=== PATIENT | male | born 1945 | race African-American/Black ===

== ENCOUNTER 2017-04-02 17:58 | Inpatient (IN) | payer MEDICARE, OTHER ==
[~2017-04-02] VITALS: Ht 170.2 cm; Wt 83.9 kg
[~2017-04-02 17:58] MED LIST: ATENOLOL PO; OMEPRAZOLE; SIMVASTATIN; VALIUM
[2017-04-02] MEDS ORDERED: SODIUM CHLORIDE 0.9% 1,000 ML IV ONE (18:49)
[2017-04-02] MEDS ORDERED: PANTOPRAZOLE SODIUM 40 MG/VIAL IV STA (18:49)
[2017-04-02] MEDS ORDERED: DIPHENHYDRAMINE 25MG CAPSULE PO ONE (19:00)
[2017-04-02 19:16] LABS: BASOPHILS % 1.3 % (0.0-2.0); EOSINOPHILS % 3.1 % (0.0-5.0); HEMATOCRIT. 39.7 % (42.0-52.0); HEMOGLOBIN. 13.6 g/dL (14.0-18.0); LYMPHOCYTES % 36.2 % (20.0-50.0); MEAN CORPUSCULAR VOLUME 84.9 fL (80.0-94.0); MEAN PLATELET VOLUME 7.7 fl (7.4-10.4); MONOCYTES % 9.4 % (2.0-8.0); PLATELET 193 x1000/uL (130-400); RED BLOOD CELL COUNT 4.68 mill/uL (4.7-6.1); RED CELL DISTRIBUTION WIDTH 18.7 % (11.6-14.6)
[2017-04-02 19:24] LABS: INR 1.1; PROTHROMBIN TIME 11.1 sec (9.4-11.6)
[2017-04-02 19:33] LABS: CARBON DIOXIDE 26 mEq/L (21-32); CHLORIDE 104 mEq/L (98-107); TROPONIN I < 0.02 ng/mL (0.00-0.04)
[2017-04-02 20:32] LABS: CLARITY URINE CLEAR (CLEAR); COLOR URINE YELLOW (YELLOW); GLUCOSE URINE NEGATIVE (NEGATIVE); KETONES URINE NEGATIVE (NEGATIVE); LEUKOCYTE ESTERASE URINE NEGATIVE (NEGATIVE); NITRITE URINE NEGATIVE (NEGATIVE); OCCULT BLOOD URINE NEGATIVE (NEGATIVE); PH URINE 5.5 (4.5-8.0); PROTEIN URINE NEGATIVE (NEGATIVE); SPECIFIC GRAVITY URINE 1.007 (1.005-1.030); UROBILINOGEN URINE 0.2 E.U./dL (0.2-1.0)
[2017-04-02] MEDS ORDERED: DOCUSATE SODIUM 100MG CAPSULE PO PRN (21:30)
[2017-04-02] MEDS ORDERED: ACETAMINOPHEN 325MG TABLET PO PRN (21:30)
[2017-04-03] MEDS: SODIUM CHLORIDE 0.9% INJ 3ML FLUSH IVF SCH ×3 (06:00→20:50)
[2017-04-03 07:47] LABS: BASOPHILS % 0.8 % (0.0-2.0); EOSINOPHILS % 2.5 % (0.0-5.0); HEMATOCRIT. 41.4 % (42.0-52.0); LYMPHOCYTES % 29.1 % (20.0-50.0); MEAN CORPUSCULAR HEMOGLOBIN 28.9 pg (28.0-32.0); MEAN CORPUSCULAR VOLUME 85.2 fL (80.0-94.0); MEAN PLATELET VOLUME 7.8 fl (7.4-10.4); MONOCYTES % 9.9 % (2.0-8.0); NEUTROPHILS % 57.7 % (40.0-76.0); PLATELET 190 x1000/uL (130-400); RED BLOOD CELL COUNT 4.86 mill/uL (4.7-6.1)
[2017-04-03] MEDS: PANTOPRAZOLE 40MG DR TABLET PO SCH (07:50)
[2017-04-03 08:00] VITALS: BP 167/96
[2017-04-03 08:04] LABS: CARBON DIOXIDE 28 mEq/L (21-32); CHLORIDE 106 mEq/L (98-107); HDL CHOLESTEROL 49 mg/dL (40-59); LDL CHOLESTEROL 106 mg/dL (5-100); TROPONIN I < 0.02 ng/mL (0.00-0.04)
[2017-04-03 09:33] VITALS: BP 167/96
[2017-04-03] MEDS ORDERED: ONDANSETRON HCL 4MG/2ML VIAL IV PRN (11:30)
[2017-04-03] MEDS ORDERED: ACETAMINOPHEN 325MG TABLET PO PRN (11:30)
[2017-04-03] MEDS ORDERED: IPRATROPIUM/ALBUTEROL 0.5-3(2.5)MG/3ML NEB INH PRN (11:30)
[2017-04-03] MEDS: METOPROLOL TARTRATE 25MG TABLET PO SCH ×2 (11:36→20:50)
[2017-04-03] MEDS: HYDROCODONE/ACETAMINOPHEN 5/325MG TABLET PO PRN ×2 (11:36→18:20)
[2017-04-03 12:00] VITALS: BP 157/90
[2017-04-03 15:49] LABS: CREATINE KINASE 103 IU/L (39-308); TROPONIN I < 0.02 ng/mL (0.00-0.04)
[2017-04-03 16:00] VITALS: BP 121/102
[2017-04-03 20:00] VITALS: BP 137/81
[2017-04-03] MEDS ORDERED: ATORVASTATIN CALCIUM 20MG TABLET PO SCH (21:00)
[2017-04-03 23:37] LABS: CREATINE KINASE 122 IU/L (39-308); TROPONIN I < 0.02 ng/mL (0.00-0.04)
[2017-04-04] VITALS: BP 154/85
[2017-04-04 04:00] VITALS: BP 154/83
[2017-04-04 05:42] LABS: BASOPHILS % 1.1 % (0.0-2.0); EOSINOPHILS % 4.6 % (0.0-5.0); HEMATOCRIT. 39.8 % (42.0-52.0); HEMOGLOBIN. 13.4 g/dL (14.0-18.0); LYMPHOCYTES % 34.7 % (20.0-50.0); MEAN CORPUSCULAR HEMOGLOBIN 28.9 pg (28.0-32.0); MEAN PLATELET VOLUME 8.1 fl (7.4-10.4); MONOCYTES % 11.6 % (2.0-8.0); PLATELET 184 x1000/uL (130-400); RED BLOOD CELL COUNT 4.63 mill/uL (4.7-6.1); RED CELL DISTRIBUTION WIDTH 19.1 % (11.6-14.6)
[2017-04-04] MEDS: SODIUM CHLORIDE 0.9% INJ 3ML FLUSH IVF SCH (05:54)
[2017-04-04 06:39] LABS: CARBON DIOXIDE 25 mEq/L (21-32); CHLORIDE 104 mEq/L (98-107); HDL CHOLESTEROL 42 mg/dL (40-59); LDL CHOLESTEROL 98 mg/dL (5-100)
[2017-04-04 08:00] VITALS: BP 136/83
[2017-04-04] MEDS: PANTOPRAZOLE 40MG DR TABLET PO SCH (09:07)
[2017-04-04] MEDS: HYDROCODONE/ACETAMINOPHEN 5/325MG TABLET PO PRN (09:07)
[2017-04-04] MEDS: METOPROLOL TARTRATE 25MG TABLET PO SCH (09:07)
[2017-04-04 11:18] VITALS: BP 136/83
== END 2017-04-04 11:59 | disposition home or self-care (01) | DRG 379 ==
LOC: EDBEDREQ 21:36 → ER 22:02 → 7WST 22:03 → ENRESERV 04-03 07:08
PROVIDERS: ADMIT Ophthalmology; ATTEND Internal Medicine
DX: K92.2 Gastrointestinal hemorrhage, unspecified (principal); I10 Essential (primary) hypertension; E78.5 Hyperlipidemia, unspecified; E78.00 Pure hypercholesterolemia, unspecified; F17.200 Nicotine dependence, unspecified, uncomplicated; W57.XXXA Bitten or stung by nonvenomous insect and other nonvenomous arthropods, initial encounter
CPT/HCPCS: 36415; 71010; 74176; 80048; 80053; 80061; 81003; 82270; 82550; 84484; 85025; 85610; 85730; 86850; 86900; 93005; 96361; 96374; 99285; C9113; J7030; J7040; Q0163

== ENCOUNTER 2018-04-08 22:06 | Inpatient (IN) | payer OTHER ==
[~2018-04-08] VITALS: Ht 165.1 cm; Wt 89.8 kg
[~2018-04-08 22:06] MED LIST changes: -OMEPRAZOLE; +OMEPRAZOLE PO
[2018-04-08] MEDS ORDERED: PREDNISONE 20MG TABLET PO ONE (23:30)
[2018-04-08] MEDS ORDERED: IPRATROPIUM/ALBUTEROL 0.5-3(2.5)MG/3ML NEB HHN ONE (23:30)
[2018-04-09 00:12] LABS: BASOPHILS % 1.3 % (0.0-2.0); EOSINOPHILS % 3.6 % (0.0-5.0); HEMATOCRIT. 34.9 % (42.0-52.0); HEMOGLOBIN. 11.6 g/dL (14.0-18.0); LYMPHOCYTES % 38.6 % (20.0-50.0); MEAN CORPUSCULAR HEMOGLOBIN 26.5 pg (28.0-32.0); MEAN CORPUSCULAR VOLUME 80.1 fL (80.0-94.0); MEAN PLATELET VOLUME 7.9 fl (7.4-10.4); MONOCYTES % 9.3 % (2.0-8.0); NEUTROPHILS % 47.2 % (40.0-76.0); PLATELET 245 x1000/uL (130-400); RED BLOOD CELL COUNT 4.36 mill/uL (4.7-6.1); RED CELL DISTRIBUTION WIDTH 21.7 % (11.6-14.6)
[2018-04-09 00:17] LABS: CHLORIDE 107 mEq/L (98-107); PARTIAL THROMBOPLASTIN TIME 27.5 sec (23.4-31.0); PROTHROMBIN TIME 10.4 sec (9.1-11.1)
[2018-04-09] MEDS ORDERED: METHYLPREDNISOLONE SOD SUCC 125 MG/2 ML VIAL IV STA (01:24)
[2018-04-09] MEDS ORDERED: LEVOFLOXACIN 500MG PREMIX 100 ML IV ONE (01:30)
[2018-04-09] MEDS ORDERED: MAGNESIUM 2 G PREMIX 50 ML IV ONE (01:30)
[2018-04-09] MEDS ORDERED: MORPHINE SULFATE 4 MG/ML CPJ (NOT FOR IM USE) IV ONE (02:15)
[2018-04-09] MEDS ORDERED: HYDR-4009 PO (09:45)
[2018-04-09] MEDS ORDERED: BENA20TA10 PO (09:45)
[2018-04-09 09:54] VITALS: BP 166/88
[2018-04-09 10:00] VITALS: BP 166/88
[2018-04-09] MEDS ORDERED: ACETAMINOPHEN 325MG TABLET PO PRN (10:30)
[2018-04-09] MEDS ORDERED: CLONIDINE 0.1MG TABLET PO PRN (10:30)
[2018-04-09] MEDS ORDERED: ONDANSETRON HCL 4MG/2ML INJ IV PRN (10:30)
[2018-04-09] MEDS ORDERED: IPRATROPIUM/ALBUTEROL 0.5-3(2.5)MG/3ML NEB INH PRN (10:30)
[2018-04-09] MEDS: ENOXAPARIN 40MG/0.4ML SYR SUBCUT SCH (11:00)
[2018-04-09] MEDS: HYDROCODONE/ACETAMINOPHEN 5/325MG TABLET PO PRN ×2 (11:38→18:13)
[2018-04-09 11:55] VITALS: BP 130/63
[2018-04-09] MEDS ORDERED: SIMVASTATIN 20 MG SCH (12:30)
[2018-04-09] MEDS: BENAZEPRIL 10MG TABLET PO SCH (13:17)
[2018-04-09] MEDS: ATENOLOL 25MG TABLET PO SCH (13:18)
[2018-04-09] MEDS: METHYLPREDNISOLONE SOD SUCC 40 MG/ML VIAL IV SCH ×2 (13:18→21:01)
[2018-04-09] MEDS: LEVOFLOXACIN 500MG PREMIX 100 ML IV SCH (13:18)
[2018-04-09] MEDS: OMEPRAZOLE 20MG CAPSULE EXTENDED RELEASE PO SCH (14:37)
[2018-04-09 15:53] VITALS: BP 134/74
[2018-04-09 16:53] LABS: CREATINE KINASE 133 IU/L (39-308)
[2018-04-09 20:00] VITALS: BP 137/83
[2018-04-09] MEDS ORDERED: ATORVASTATIN CALCIUM 10MG TABLET PO SCH (21:00)
[2018-04-10] VITALS: BP 137/70
[2018-04-10 00:23] LABS: CREATINE KINASE 166 IU/L (39-308)
[2018-04-10 04:00] VITALS: BP 127/71
[2018-04-10] MEDS: HYDROCODONE/ACETAMINOPHEN 5/325MG TABLET PO PRN ×2 (06:13→14:20)
[2018-04-10] MEDS: OMEPRAZOLE 20MG CAPSULE EXTENDED RELEASE PO SCH (06:20)
[2018-04-10] MEDS ORDERED: LACTULOSE 20G/30ML UDC PO SCH (07:15)
[2018-04-10 08:00] VITALS: BP 128/62
[2018-04-10] MEDS: METHYLPREDNISOLONE SOD SUCC 40 MG/ML VIAL IV SCH (09:00)
[2018-04-10] MEDS: ATENOLOL 25MG TABLET PO SCH (09:00)
[2018-04-10] MEDS: BENAZEPRIL 10MG TABLET PO SCH (09:43)
[2018-04-10] MEDS: ENOXAPARIN 40MG/0.4ML SYR SUBCUT SCH (11:00)
[2018-04-10 12:43] VITALS: BP 132/69
[2018-04-10] MEDS ORDERED: ATENOLOL 25MG TABLET PO SCH (13:00)
[2018-04-10 13:59] LABS: BG BASE EXCESS -1.5 mmol/L (-2.0-2.0); BG CARBOXYHEMOGLOBIN 0.6 % (0.5-1.5); BG DEOXYHEMOGLOBIN 5.6 % (0.0-5.0); BG HCO3 ACT 22.7 mmol/L (22.0-26.0); BG METHEMOGLOBIN 0.2 % (0.0-1.5); BG OXYGEN SATURATION 94.4 % (92.0-98.5); BG OXYHEMOGLOBIN 93.6 % (94.0-97.0); BG PCO2 36.7 mmHg (35.0-45.0); BG PO2 75.4 mmHg (75.0-100.0); BG SAMPLE SITE RIGHT RADIAL; BG TOTAL HEMOGLOBIN 12.6 g/dL (12.0-18.0); BG VENT MODE ROOM AIR
[2018-04-10] MEDS: LEVOFLOXACIN 500MG PREMIX 100 ML IV SCH (14:17)
[2018-04-10 16:00] VITALS: BP 129/69
[2018-04-10 19:34] VITALS: BP 142/82
[2018-04-11] MEDS ORDERED: FAMOTIDINE 20MG TABLET PO SCH (09:00)
== END 2018-04-10 20:20 | disposition home or self-care (01) | DRG 192 ==
LOC: ER 22:06 → 6WST 04-09 07:50 → ENRESERV 04-09 08:00
PROVIDERS: ADMIT Internal Medicine; ATTEND Internal Medicine
DX: J44.1 Chronic obstructive pulmonary disease with (acute) exacerbation (principal); E78.00 Pure hypercholesterolemia, unspecified; F17.210 Nicotine dependence, cigarettes, uncomplicated; I10 Essential (primary) hypertension; J06.9 Acute upper respiratory infection, unspecified; Z91.19 Patient's noncompliance with other medical treatment and regimen; R06.03 Acute respiratory distress
CPT/HCPCS: 36415; 36600; 70360; 71045; 71250; 74176; 80053; 82375; 82550; 82805; 83690; 83880; 84484; 85025; 85610; 85730; 87804; 93005; 96374; 99285; J1650; J1956; J2270; J2920; J2930; J3475; J7030; J7040; J7512; J7620

== ENCOUNTER 2019-11-04 17:22 | Emergency (ER) | payer MEDICARE, OTHER ==
[~2019-11-04] VITALS: Ht 170.2 cm; Wt 88.0 kg
[~2019-11-04 17:22] MED LIST changes: +BENA20TA10 PO; +HYDR-4009 PO; -VALIUM
[2019-11-04] MEDS ORDERED: ACETAMINOPHEN 500MG TABLET PO ONE (19:15)
[2019-11-04 20:49] LABS: BASOPHILS % 0.9 % (0.0-2.0); EOSINOPHILS % 4.5 % (0.0-5.0); HEMATOCRIT. 38.6 % (42.0-52.0); HEMOGLOBIN. 13.3 g/dL (14.0-18.0); LYMPHOCYTES % 29.9 % (20.0-50.0); MEAN CORPUSCULAR HEMOGLOBIN 30.7 pg (28.0-32.0); MEAN CORPUSCULAR VOLUME 89.4 fL (80.0-94.0); MEAN PLATELET VOLUME 7.8 fl (7.4-10.4); MONOCYTES % 9.4 % (2.0-8.0); NEUTROPHILS % 55.3 % (40.0-76.0); PLATELET 249 x1000/uL (130-400); RED BLOOD CELL COUNT 4.32 mill/uL (4.7-6.1); RED CELL DISTRIBUTION WIDTH 17.3 % (11.6-14.6)
[2019-11-04 20:51] LABS: CHLORIDE 107 mEq/L (98-107)
[2019-11-04 20:55] LABS: ETHANOL BLOOD < 10 mg/dL; PROTHROMBIN TIME 10.4 sec (9.6-11.0)
[2019-11-04 20:57] LABS: C REACTIVE PROTEIN QUANT 0.4 mg/L (0.0-3.0)
[2019-11-04 21:26] LABS: CREATINE KINASE 124 IU/L (39-308)
[2019-11-04 21:26] LABS: OPIATES URINE SCREEN PRESUMTIVE POSITIVE (NEGATIVE); PHENCYCLIDINE URINE SCREEN NEGATIVE (NEGATIVE)
[2019-11-04 21:27] LABS: *AMPHETAMINES SCREEN URINE NEGATIVE (NEGATIVE); *BARBITURATES SCREEN URINE NEGATIVE (NEGATIVE); *BENZODIAZEPINES SCREEN URINE NEGATIVE (NEGATIVE); *COCAINE SCREEN URINE NEGATIVE (NEGATIVE); CANNABINOID URINE SCREEN NEGATIVE (NEGATIVE); METHADONE URINE SCREEN NEGATIVE (NEGATIVE)
[2019-11-04 22:51] VITALS: BP 142/80
== END 2019-11-04 22:52 | disposition home or self-care (01) ==
LOC: ER 17:22
DX: G89.29 Other chronic pain (principal); M54.89 Other dorsalgia; I10 Essential (primary) hypertension; E78.00 Pure hypercholesterolemia, unspecified; F17.210 Nicotine dependence, cigarettes, uncomplicated
CPT/HCPCS: 36415; 71045; 80053; 80305; 80320; 82550; 83880; 84484; 85025; 86140; 93005; 99285; G0480

== ENCOUNTER 2020-10-23 16:59 | Emergency (ER) | payer MEDICARE ==
[~2020-10-23] VITALS: Ht 165.1 cm; Wt 80.0 kg
[2020-10-23 19:06] LABS: CHLORIDE 103 mEq/L (98-107)
[2020-10-23 19:08] LABS: PROTHROMBIN TIME 10.6 sec (9.6-11.0)
[2020-10-23 19:13] LABS: BASOPHILS % 1.1 % (0.0-2.0); HEMATOCRIT. 40.5 % (42.0-52.0); HEMOGLOBIN. 13.9 g/dL (14.0-18.0); LYMPHOCYTES % 35.3 % (20.0-50.0); MEAN CORPUSCULAR HEMOGLOBIN 29.9 pg (28.0-32.0); MEAN CORPUSCULAR VOLUME 87.3 fL (80.0-94.0); MEAN PLATELET VOLUME 8.3 fl (7.4-10.4); MONOCYTES % 11.2 % (2.0-8.0); NEUTROPHILS % 47.4 % (40.0-76.0); PLATELET 222 x1000/uL (130-400); RED BLOOD CELL COUNT 4.64 mill/uL (4.7-6.1); RED CELL DISTRIBUTION WIDTH 14.6 % (11.6-14.6)
[2020-10-23 20:53] VITALS: BP 149/80
[2020-10-23 21:04] LABS: CLARITY URINE CLEAR (CLEAR); COLOR URINE YELLOW (YELLOW); KETONES URINE NEGATIVE (NEGATIVE); LEUKOCYTE ESTERASE URINE NEGATIVE (NEGATIVE); NITRITE URINE NEGATIVE (NEGATIVE); OCCULT BLOOD URINE NEGATIVE (NEGATIVE); PROTEIN URINE NEGATIVE (NEGATIVE); SPECIFIC GRAVITY URINE 1.004 (1.005-1.030); UROBILINOGEN URINE 0.2 E.U./dL (0.2-1.0)
== END 2020-10-23 20:55 | disposition home or self-care (01) ==
LOC: ER 16:59
DX: R07.89 Other chest pain (principal); I10 Essential (primary) hypertension; J44.1 Chronic obstructive pulmonary disease with (acute) exacerbation; E78.00 Pure hypercholesterolemia, unspecified
CPT/HCPCS: 36415; 71045; 80053; 81003; 84484; 85025; 93005; 99285